=== PATIENT | female | born 1940 | race Caucasian/White ===

== ENCOUNTER 2024-02-07 12:05 | Inpatient (IN) | payer MEDICARE, OTHER ==
[~2024-02-07] VITALS: Ht 154.9 cm; Wt 63.5 kg
[~2024-02-07 12:05] MED LIST: ASPI-1071 PO; ATOR20TA66 PO; CLOP-32 PO; LEVO50TA PO; PANT40TA54 PO
[2024-02-07] MEDS ORDERED: iohexol 350MG/ML 100ml bottle IV ONE (12:10)
[2024-02-07 12:40] LABS: BASOPHILS % (AUTO) 0.6 % (0-1); EOSINOPHILS # (AUTO) 0.1 X10'3 (0-0.9); EOSINOPHILS % (AUTO) 1.2 % (0-6); HEMATOCRIT 36.2 % (35.0-45.0); HEMOGLOBIN 12.5 g/dl (12.0-16.0); LYMPHOCYTES # (AUTO) 2.1 X10'3 (1.1-4.8); LYMPHOCYTES % (AUTO) 28.4 % (21-51); MEAN CORPUSCULAR HEMOGLOBIN 30.7 PG (27.0-31.0); MEAN CORPUSCULAR HGB CONC 34.5 g/dL (33.0-36.5); MEAN CORPUSCULAR VOLUME 88.8 FL (78-98); MEAN PLATELET VOLUME 7.8 FL (7.4-10.4); MONOCYTES # (AUTO) 0.8 X10'3 (0-0.9); MONOCYTES % (AUTO) 10.3 % (2-12); NEUTROPHILS # (AUTO) 4.5 X10'3 (1.8-7.7); NEUTROPHILS % (AUTO) 59.5 % (42-75); PLATELET COUNT 294 X10'3 (140-440); RED BLOOD COUNT 4.08 X10'6 (4.20-5.60); RED CELL DISTRIBUTION WIDTH 13.7 % (11.5-14.5); WHITE BLOOD COUNT 7.6 X10'3 (4.5-11.0)
[2024-02-07 12:59] LABS: ALBUMIN 3.9 G/DL (3.4-5.0); ANION GAP 10 (8-16); BLOOD UREA NITROGEN 11 MG/DL (7-18); BUN/CREATININE RATIO 21.2 (10.0-20.0); CALCIUM 8.8 MG/DL (8.5-10.1); CHLORIDE 94 MMOL/L (99-107); CREATININE 0.52 MG/DL (0.40-0.90); GLUCOSE 112 MG/DL (70-104); POTASSIUM 4.2 MMOL/L (3.5-5.1); SODIUM 130 MMOL/L (135-145); TOTAL CARBON DIOXIDE 25.6 MMOL/L (24-32); eCRCL 61 ML/MIN; eGFR > 90 ML/MIN
[2024-02-07 13:01] LABS: APTT 29 SECONDS (22-32); PROTHROMBIN TIME 10.9 SECONDS (9.0-12.0)
[2024-02-07] MEDS: niCARDipine-NS 40mg/200ml IVPB 200 ML IV SCH (14:27)
[2024-02-07 14:34] LABS: BILIRUBIN,URINE NEGATIVE (Neg); CLARITY,URINE CLEAR (Clear); COLOR,URINE STRAW (Yellow); GLUCOSE, URINE NEGATIVE (Neg); KETONES,URINE NEGATIVE (Neg); LEUKOCYTE ESTERASE ,URINE NEGATIVE (Neg); NITRITES, URINE NEGATIVE (Neg); OCCULT BLOOD,URINE NEGATIVE (Neg); PROTEIN,URINE NEGATIVE (Neg); UROBILINOGEN,URINE 0.2 E.U/dL (0.2-1.0)
[2024-02-07 14:37] LABS: UA COLLECTION TYPE VOIDED
[2024-02-07] MEDS: amLODIPine 5mg tablet PO ONE (14:38)
[2024-02-07] MEDS: acetaminophen 325mg tablet PO ONE (14:39)
[2024-02-07 14:44] LABS: ACETAMINOPHEN < 2.0 UG/ML (10-30)
[2024-02-07] MEDS: aspirin 325mg tablet PO ONE (15:01)
[2024-02-07] MEDS: clopidogrel 300mg tablet PO ONE (15:02)
[2024-02-07] MEDS ORDERED: ALBU2.5V10 IH (15:21)
[2024-02-07] MEDS ORDERED: METO-395 PO (15:21)
[2024-02-07] MEDS ORDERED: FLO0.4C PO (15:21)
[2024-02-07] MEDS ORDERED: LANS15CA18 PO (15:21)
[2024-02-07] MEDS ORDERED: ASPI-1265 PO (15:23)
[2024-02-07] MEDS ORDERED: ondansetron/PF 4mg/2ml inj IV PRN (15:25)
[2024-02-07] MEDS ORDERED: magnesium sulf-water 2g/50mL 50 ML IV PRN (15:25)
[2024-02-07] MEDS ORDERED: HYDROmorphone inj. 0.5 MG/0.5 ML DISP.SYRIN IV PRN (15:25)
[2024-02-07] MEDS ORDERED: potassium Cl 20 mEq SR tablet PO PRN ×2 (15:25)
[2024-02-07] MEDS ORDERED: morphine 2 MG/ML inj. syringe IV PRN (15:25)
[2024-02-07] MEDS ORDERED: magnesium Cl slow-release 64mg tablet PO PRN (15:25)
[2024-02-07] MEDS ORDERED: mag hydrox/Alum hydrox/simeth 30ml oral suspension PO PRN (15:25)
[2024-02-07] MEDS ORDERED: potassium Cl 40MEQ/1/2NS 520ml 520 ML IV PRN (15:25)
[2024-02-07] MEDS ORDERED: magnesium sulf-water 4G/100mL 100 ML IV PRN (15:25)
[2024-02-07] MEDS ORDERED: magnesium hydroxide 30ml (MOM) UD suspension PO PRN (15:25)
[2024-02-07] MEDS ORDERED: FAMO40TA58 PO (15:36)
[2024-02-07] MEDS ORDERED: MULT-1133 PO (15:36)
[2024-02-07] MEDS: atorvastatin 20mg tablet PO SCH (15:54)
[2024-02-07 16:15] LABS: CHOLESTEROL 176 MG/DL (0-200); HDL CHOLESTEROL 90 MG/DL (35-60); LDL CHOLESTEROL 72 MG/DL (50-100); TRIGLYCERIDES 78 MG/DL (20-135)
[2024-02-07 16:16] LABS: HEMOGLOBIN A1C 5.7 % (4.5-6.2)
[2024-02-07] MEDS: K and/or MAG REPLACEMENT MC SCH (20:00)
[2024-02-07] MEDS: clopidogrel 75mg tablet PO SCH (20:19)
[2024-02-07] MEDS: aspirin 81mg tab.chew PO SCH (20:20)
[2024-02-07] MEDS: docusate sod 100mg capsule PO SCH (20:20)
[2024-02-07] MEDS: tamsulosin 0.4mg capsule PO SCH (20:20)
[2024-02-07] MEDS ORDERED: enoxaparin 30mg/0.3ml syringe SUBCUT ONE (21:25)
[2024-02-07 21:30] VITALS: BP 145/79; PULSE 57; RESP 18; TEMP 97.9; O2SAT 96
[2024-02-07] MEDS: enoxaparin 40mg/0.4ml syringe SUBCUT ONE (21:52)
[2024-02-08] MEDS: acetaminophen 325mg tablet PO PRN (01:27)
[2024-02-08 02:00] VITALS: BP 126/70; PULSE 61; RESP 13; TEMP 97.9; O2SAT 96
[2024-02-08 06:00] VITALS: BP 130/69; PULSE 55; RESP 14; TEMP 97.5; O2SAT 99
[2024-02-08] MEDS: pantoprazole 40mg Tablet.DR PO SCH (07:26)
[2024-02-08] MEDS: levoTHYROXINE 25mcg tablet PO SCH (07:26)
[2024-02-08] MEDS: multivitamins, therapeutics tablet PO SCH (07:26)
[2024-02-08 07:32] LABS: BASOPHILS # (AUTO) 0.1 X10'3 (0-0.2); BASOPHILS % (AUTO) 0.8 % (0-1); EOSINOPHILS # (AUTO) 0.1 X10'3 (0-0.9); EOSINOPHILS % (AUTO) 2.1 % (0-6); HEMATOCRIT 36.6 % (35.0-45.0); HEMOGLOBIN 12.4 g/dl (12.0-16.0); LYMPHOCYTES # (AUTO) 1.5 X10'3 (1.1-4.8); LYMPHOCYTES % (AUTO) 24.1 % (21-51); MEAN CORPUSCULAR HEMOGLOBIN 29.9 PG (27.0-31.0); MEAN PLATELET VOLUME 8.1 FL (7.4-10.4); MONOCYTES # (AUTO) 0.8 X10'3 (0-0.9); MONOCYTES % (AUTO) 12.8 % (2-12); NEUTROPHILS # (AUTO) 3.8 X10'3 (1.8-7.7); NEUTROPHILS % (AUTO) 60.2 % (42-75); PLATELET COUNT 294 X10'3 (140-440); RED BLOOD COUNT 4.16 X10'6 (4.20-5.60); RED CELL DISTRIBUTION WIDTH 13.6 % (11.5-14.5); WHITE BLOOD COUNT 6.4 X10'3 (4.5-11.0)
[2024-02-08] MEDS: metoprolol succinate 25mg (24-HOUR) SR. Tablet PO SCH (08:00)
[2024-02-08 08:11] LABS: ALANINE AMINOTRANSFERASE 27 U/L (12-78); ALBUMIN 3.6 G/DL (3.4-5.0); ALBUMIN/GLOBULIN RATIO 1.4 (1.1-1.5); ALKALINE PHOSPHATASE 61 IU/L (46-116); ANION GAP 9 (8-16); ASPARTATE AMINO TRANSFERASE 15 U/L (10-37); BILIRUBIN,TOTAL 0.8 MG/DL (0.1-1.0); BLOOD UREA NITROGEN 8 MG/DL (7-18); CALCIUM 8.6 MG/DL (8.5-10.1); CHLORIDE 101 MMOL/L (99-107); GLUCOSE 101 MG/DL (70-104); MAGNESIUM 2.2 MG/DL (1.5-2.4); POTASSIUM 3.6 MMOL/L (3.5-5.1); SODIUM 135 MMOL/L (135-145); TOTAL CARBON DIOXIDE 25.1 MMOL/L (24-32); TOTAL PROTEIN 6.2 G/DL (6.4-8.2); eCRCL 63 ML/MIN; eGFR > 90 ML/MIN
[2024-02-08 10:00] VITALS: BP 100/55; PULSE 58; RESP 16; TEMP 97.7; O2SAT 97
[2024-02-08 16:00] VITALS: BP 114/60; PULSE 66; RESP 18; TEMP 98.3; O2SAT 97
[2024-02-08] MEDS ORDERED: CLOP75TA34 PO (16:35)
[2024-02-08] MEDS ORDERED: ASPI-1265 PO (16:35)
[2024-02-08] MEDS ORDERED: ATOR20TA66 PO (16:40)
== END 2024-02-08 17:00 | disposition home or self-care (01) | DRG 69 ==
LOC: ER 12:05 → ED HOLD 13:59 → ORTHO 4S 21:27
PROVIDERS: ADMIT Family Medicine; ATTEND Family Medicine
PROC: B32T1ZZ Computerized Tomography (CT Scan) of Left Pulmonary Artery using Low Osmolar Contrast (ICD-10-PCS; principal; 2024-02-07)
PROC: B3201ZZ Computerized Tomography (CT Scan) of Thoracic Aorta using Low Osmolar Contrast (ICD-10-PCS; 2024-02-07)
PROC: B32S1ZZ Computerized Tomography (CT Scan) of Right Pulmonary Artery using Low Osmolar Contrast (ICD-10-PCS; 2024-02-07)
DX: G45.9 Transient cerebral ischemic attack, unspecified (principal); I16.1 Hypertensive emergency; E78.00 Pure hypercholesterolemia, unspecified; K21.9 Gastro-esophageal reflux disease without esophagitis; M79.7 Fibromyalgia; G62.89 Other specified polyneuropathies; Z79.82 Long term (current) use of aspirin; Z79.899 Other long term (current) drug therapy
CPT/HCPCS: 36415; 70450; 70496; 70498; 70551; 71045; 80048; 80053; 80061; 80329; 81003; 83036; 83735; 84443; 85025; 85610; 85730; 87081; 93005; 93306; 97110; 97116; 97162; 99285; G0378; J1650; Q9967